=== PATIENT | female | born 1960 | race Caucasian/White ===

== ENCOUNTER → 2022-03-28 16:06 | Outpatient (CLI) | payer BC, SELFPAY ==
--- NOTE | 2022-03-28 16:13 | DI.US.S_ITS ---
PROCEDURE: US PERIPH VENOUS LOW EXTREM RT INDICATIONS: Localized swelling, mass and lump,right lower limb TECHNIQUE: Real-time imaging, as well as color and pulse Doppler interrogation, were performed of the lower extremity deep veins from the inguinal ligament to the popliteal fossa. COMPARISON: None. FINDINGS: The common femoral, femoral and popliteal veins are normally compressible, and free of intraluminal thrombus. Color and pulse Doppler demonstrate normal phasic intraluminal flow. There is normal augmentation response to distal compression maneuver. 1.2 x 0.7 x 1.1 cm solid soft tissue mass within the right anterior lateral thigh corresponding to the palpable abnormality involving the subcutaneous soft tissues. No vascularity. IMPRESSION: 1. No deep venous thrombosis identified within the right lower extremity. 2. Possible soft tissue lipoma, other etiologies not excludable. Clinical follow-up is recommended and if the finding increases in size or the patient develops symptoms such as pain, a repeat examination or MRI could be obtained. Dictated by: Jose J VEÁLSQUEZ Interpreted: Demetrio La MD on 03/29/2022 at 15:22 Transcribed by: BRO on 03/29/2022 at 15:23 Approved by: Demetrio La M.D. on 03/29/2022 at 22:25
== END ==
PROVIDERS: PCP Nurse Practitioner Family; Referring Provider Nurse Practitioner Family; Visit Provider Nurse Practitioner Family
DX: R22.41 Localized swelling, mass and lump, right lower limb (principal)
CPT/HCPCS: 93971

== ENCOUNTER → 2022-10-24 10:32 | Outpatient (CLI) | payer BC, SELFPAY ==
--- NOTE | 2022-10-24 10:37 | DI.US.S_ITS ---
PROCEDURE: US ABD AORTA ANEURYSM SCREEN INDICATIONS: ENCOUNTER FOR SCREENING FOR CARDIOVASCULAR DISORDER TECHNIQUE: Real time scanning was performed of the aorta and iliac arteries, with image documentation. COMPARISON: None. FINDINGS: Aorta: Proximal aortic diameter measures 1.9 cm. Mid-aorta measures 1.7 cm. Distal aortic diameter is 1.5 cm. Iliac arteries: Right common iliac artery measures 1.1 cm. Left common iliac artery measures 1.1 cm. IMPRESSION: No abdominal aortic aneurysm. Dictated by: Ole Osborne M.D. on 10/24/2022 at 11:10 Approved by: Ole Osborne M.D. on 10/24/2022 at 11:10
--- NOTE | 2022-10-24 10:39 | DI.RAD.S_ITS ---
PROCEDURE: XR HIP W PEL IF DONE RT 2V INDICATIONS: BILATERAL HIP PAIN TECHNIQUE: AP pelvis with lateral view(s) of the right hip(s). COMPARISON: None. FINDINGS: Bones: No fractures or dislocations. Pelvic ring appears intact. No suspicious bony lesions. Mild hip and sacroiliac joint degeneration bilaterally. Soft tissues: The visualized bowel gas pattern is normal. No suspicious soft tissue calcifications. IMPRESSION: Mild degenerative joint disease. Dictated by: Nasra Izquierdo M.D. on 10/24/2022 at 15:55 Approved by: Nasra Izquierdo M.D. on 10/24/2022 at 15:56
== END ==
PROVIDERS: PCP Nurse Practitioner Family; Referring Provider Nurse Practitioner Family; Visit Provider Nurse Practitioner Family
DX: Z13.6 Encounter for screening for cardiovascular disorders (principal); M25.551 Pain in right hip; M25.552 Pain in left hip; M16.0 Bilateral primary osteoarthritis of hip
CPT/HCPCS: 73502; 76706

== ENCOUNTER → 2022-11-04 09:25 | Outpatient (CLI) | payer BC, SELFPAY ==
--- NOTE | 2022-11-04 10:24 | DI.DEXA.S_ITS ---
Indication: postmenopausal; screening for osteoporosis; parental hip fracture; Referring Provider: ANDREW VICTOR Study: Bone densitometry was performed. Exam Date: November 04, 2022 Accession number: [id number] Bone Density: Region BMD T-score Z-score Classification AP Spine(L1-L4) 1.031 -0.1 1.3 Normal Femoral Neck (Left) 0.740 -1.0 0.3 Normal Total Hip (Left) 0.940 0.0 1.0 Normal Femoral Neck (Right) 0.712 -1.2 0.1 Osteopenia Total Hip (Right) 0.884 -0.5 0.5 Normal Total Hip Mean 0.912 -0.3 0.8 Normal World Health Organization criteria for BMD impression classify patients as: Normal (T-score at or above -1.0), Osteopenia (T-score between -1.0 and -2.5), or Osteoporosis (T-score at or below -2.5). 10-year Fracture Risk(1): Major Osteoporotic Fracture 14% Hip Fracture 0.5% Reported Risk Factors: [place] (), Neck BMD=0.712, BMI=33.0, parental fracture (1) FRAX(R) Version 3.08. Fracture probability calculated for an untreated patient. Fracture probability may be lower if the patient has received treatment. Impression: The patient has low bone mass, based on the Right Femoral Neck T-score. The patient has an estimated ten-year risk of hip fracture of 0.5% and an estimated ten-year risk of major fracture of 14%, based on the WHO FRAX algorithm. The patient has risk factors, including: parental hip fracture. Discussion: BONE DENSITY IS LOW AT ONE OR MORE SKELETAL SITES. This patient's lowest T-score is low at one or more skeletal sites. It meets the World Health Organization's (WHO) criteria for ?low bone mass? (T-score between -1.0 and -2.5). The patient's 10-year risk of fracture as calculated by FRAX is less than the threshold where pharmacological therapy is recommended by the National Osteoporosis Foundation (NOF). However, all treatment decisions require clinical judgment and consideration of individual patient factors, including patient preferences, comorbidities, previous drug use, risk factors not captured in the FRAX model (e.g., frailty, falls, vitamin D deficiency, increased bone turnover, interval significant decline in bone density) and possible under or overestimation of fracture risk by FRAX. The patient should follow a healthful lifestyle (good nutrition with adequate calcium and vitamin D, and appropriate weight-bearing exercise). Follow-Up: Consider repeating this study in 2 to 3 years to reassess this patient's status, or sooner if there is some new clinical indication. Reported by: EUGENIE BONE MD on 11/04/2022 10:57:00 AM.
== END ==
PROVIDERS: PCP Nurse Practitioner Family; Referring Provider Nurse Practitioner Family; Visit Provider Nurse Practitioner Family
DX: Z13.820 Encounter for screening for osteoporosis (principal); M85.851 Other specified disorders of bone density and structure, right thigh; Z78.0 Asymptomatic menopausal state
CPT/HCPCS: 77080